=== PATIENT | male | born 1985 | race Hispanic/Latino ===

== ENCOUNTER 2019-01-03 21:11 | Emergency (ER) | payer OTHER ==
--- OUTSIDE RECORDS SUMMARY | 2019-01-03 21:13 | XMS REPORT | Clinical Summary ---
:1985 Author Organization [facility] Address [address] [place] [address] Care Team Providers Name Role Phone Pcp, No Primary Care Provider Unavailable Allergies No Known Allergies Medications No known medications Active Problems Not on file Encounters Date Type Specialty Care Team Description 03/01/2018 Emergency Emergency Medicine Justa Freeman, Chest pain, unspecified type (Primary Dx); Paresthesia; Dizziness 03/01/2018 Orders Only General Internal Medicine after 01/02/2018 Social History Tobacco Use Types Packs/Day Years Used Date Never Assessed Sex Assigned at Date Recorded Not on file Job Start Date Occupation Industry Not on file Not on file Not on file Travel History Travel Start Travel End No recent travel history available. Last Filed Vital Signs Vital Sign Reading Time Taken Blood Pressure 112/52 03/01/2018 7:20 PM CDT Pulse 76 03/01/2018 7:20 PM CDT Temperature 36.5 C (97.7 F) 03/01/2018 5:46 PM CDT Respiratory Rate 29 03/01/2018 7:20 PM CDT Oxygen Saturation 94% 03/01/2018 7:20 PM CDT Inhaled Oxygen Concentration - - Weight 122.9 kg (271 lb) 03/01/2018 5:46 PM CDT Height 185.4 cm (6' 1") 03/01/2018 5:46 PM CDT Body Mass Index 35.75 03/01/2018 5:46 PM CDT Plan of Treatment Not on file Procedures Procedure Name Priority Date/Time Associated Comments Diagnosis CRITICAL CARE Routine 03/10/2018 11:02 Results for this AM CDT procedure are in the results section. XR CHEST 1 VIEW STAT 03/01/2018 6:44 Results for this PORTABLE/BEDSIDE PM CDT procedure are in the results section. CBC W/PLT COUNT & STAT 03/01/2018 6:12 Results for this AUTO DIFFERENTIAL PM CDT procedure are in the results section. CREATINE KINASE (CK), STAT 03/01/2018 6:12 Results for this TOTAL AND MB PM CDT procedure are in the results section. TROPONIN I STAT 03/01/2018 6:12 Results for this PM CDT procedure are in the results section. BASIC METABOLIC PANEL STAT 03/01/2018 6:12 Results for this (7) PM CDT procedure are in the results section. CBC W/PLT COUNT & STAT 03/01/2018 6:12 Results for this AUTO DIFFERENTIAL PM CDT procedure are in the results section. ECG 12-LEAD Routine 03/01/2018 6:10 PM CDT Procedure Note - Interface, External Ris In - 03/01/2018 11:41 PM CDT Ventricular Rate 83 BPM Atrial Rate 83 BPM P-R Interval 134 ms QRS Duration 74 ms Q-T Interval 380 ms QTC Calculation(Bazett) 446 ms P Winthrop 67 degrees R Winthrop 64 degrees T Winthrop 61 degrees Normal sinus rhythm Normal ECG No previous ECGs available ECG 12-LEAD STAT 03/01/2018 6:10 PM CDT POCT-GLUCOSE METER Routine 03/01/2018 6:[address] BRAIN/STROKE TEST STAT 03/01/2018 6:02 PM CDT Results for this procedure DESIGN are in the results section. after 01/02/2018 Results CRITICAL CARE (03/10/2018 11:02 AM CDT) Narrative Performed At Justa Freeman MD 03/10/2018 11:02 AM Critical Care Performed by: JUSTA FREEMAN Authorized by: JUSTA FREEMAN Total critical care time: 40 minutes Critical care time was exclusive of separately billable procedures and treating other patients and teaching time. Critical care was necessary to treat or prevent imminent or life-threatening deterioration of the following conditions: [employer] failure or compromise. Critical care was time spent personally by me on the following activities: development of treatment plan with patient or surrogate, discussions with consultants, discussions with primary provider, interpretation of cardiac output measurements, evaluation of patient's response to treatment, examination of patient, obtaining history from patient or surrogate, ordering and performing treatments and interventions, ordering and review of laboratory studies, ordering and review of radiographic studies, pulse oximetry, re-evaluation of patient's condition and review of old charts. XR chest 1 view portable / bedside (03/01/2018 6:44 PM CDT) Narrative Performed At FINAL REPORT [facility] INDICATION: CHEST PAIN COMPARISON: None TECHNIQUE: Single frontal view of the chest. FINDINGS: Lungs and pleura: Clear lungs. No effusion. Heart and mediastinum: Normal heart size. Unremarkable mediastinal contours. Osseous structures: No acute abnormality. Other: None. IMPRESSION: No acute intrathoracic abnormality. Signed: JR Zamarripa Robert MD Report Verified Date/Time:03/01/2018 19:13:17 Reading Location: [address] Reading Room Procedure Note Interface, External Ris In - 03/01/2018 7:15 PM CDT FINAL REPORT INDICATION: CHEST PAIN COMPARISON: None TECHNIQUE: Single frontal view of the chest. FINDINGS: Lungs and pleura: Clear lungs. No effusion. Heart and mediastinum: Normal heart size. Unremarkable mediastinal contours. Osseous structures: No acute abnormality. Other: None. IMPRESSION: No acute intrathoracic abnormality. Signed: JR Zamarripa Robert MD Report Verified Date/Time: 03/01/2018 19:13:17 Reading Location: [address] Reading Room Performing Organization Address City/State/Zipcode Phone Number [facility] CBC with platelet count + automated diff (03/01/2018 6:12 PM CDT) WBC 7.6 3.5 - 10.5 K/L [facility] RBC 5.00 4.63 - 6.08 M/L [facility] Hemoglobin 14.5 13.7 - 17.5 GM/DL [facility] Hematocrit 44.0 40.1 - 51.0 % [facility] MCV 88.0 79.0 - 92.2 fL [facility] MCH 29.0 25.7 - 32.2 pg [facility] MCHC 33.0 32.3 - 36.5 GM/DL [facility] RDW 11.9 11.6 - 14.4 % [facility] Platelets 218 150 - 450 K/CU MM [facility] MPV 10.9 9.4 - 12.4 fL [facility] nRBC 0 0 - 0 /100 WBC [facility] % Neutros 44 % [facility] % Lymphs 32 % [facility] % Monos 12 % [facility] % Eos 11 % [facility] % Baso 1 % [facility] # Neutros 3.30 1.78 - 5.38 K/L [facility] # Lymphs 2.38 1.32 - 3.57 K/L [facility] # Monos 0.93 (H) 0.30 - 0.82 K/L [facility] # Eos 0.85 (H) 0.04 - 0.54 K/L [facility] # Baso 0.06 0.01 - 0.08 K/L [facility] Immature Granulocytes-Relative 1 0 - 1 % [facility] Specimen Blood - Arm, Left Performing Organization Address City/State/Zipcode Phone Number [facility] [address] [place] [address] CENTER Troponin I (03/01/2018 6:12 PM CDT) Troponin I <0.01 0.00 - 0.03 ng/mL [facility] Specimen Blood - Arm, Left Narrative Performed At [facility] Troponin I (TnI) levels must be interpreted in the context of the presenting symptoms and the clinical findings. Elevated TnI levels indicate myocardial damage, but are not specific for ischemic heart disease. Elevated TnI levels are seen in patients with other cardiac conditions (including myocarditis and congestive heart failure), and slight TnI elevations occur in patients with other conditions, including sepsis, renal failure, acidosis, acute neurological disease, and persistent tachyarrhythmia. Performing Organization Address [facility] Phone Number [address] [address] [phone] [place] Creatine Kinase (CK), Total and MB (03/01/2018 6:12 PM CDT) Total CK 166 29 - 200 U/L [facility] CK-MB 2.3 0.0 - 6.6 ng/mL [facility] MB Relative Index 1.4 % [facility] Specimen Blood - Arm, Left Narrative Performed At CK-MB Reference Range: [facility] <6.7Normal 6.7-10.0Borderline >10.0 Abnormal Performing Organization Address [facility] Phone Number [address] [address] [place] Basic Metabolic Panel (03/01/2018 6:12 PM CDT) Sodium 136 136 - 145 meq/L [facility] Potassium 3.7Comment: Specimen slightly 3.5 - 5.1 meq/L [facility] Chloride 105 98 - 107 meq/L [facility] CO2 23 22 - 29 meq/L [facility] BUN 17 7 - 21 mg/dL [facility] Creatinine 1.15Comment: Specimen slightly 0.57 - 1.25 mg/dL [facility] Glucose 97 70 - 105 mg/dL [facility] Calcium 9.3 8.4 - 10.2 mg/dL [facility] EGFR Comment: INSUFFICIENT CLINICAL mL/min/1.73 sq m [facility] DATA TO CALCULATE ESTIMATED MEDICAL CENTER GFR. Specimen Blood - Arm, Left Performing Organization Address [facility] Phone Number [address] [address] [place] ECG 12 lead (03/01/2018 6:10 PM CDT) Narrative Performed At Ventricular Rate 83 BPM GE MUSE Atrial Rate 83 BPM P-R Interval 134 ms QRS Duration 74 ms Q-T Interval 380 ms QTC Calculation(Bazett) 446 ms P Winthrop 67 degrees R Winthrop 64 degrees T Winthrop 61 degrees Normal sinus rhythm Normal ECG No previous ECGs available Confirmed by Virgilio HUERTA MICHAEL ([id number]) on 03/02/2018 7:51:20 AM Procedure Note Interface, External Ris In - 03/02/2018 7:51 AM CDT Ventricular Rate 83 BPM Atrial Rate 83 BPM P-R Interval 134 ms QRS Duration 74 ms Q-T Interval 380 ms QTC Calculation(Bazett) 446 ms P Winthrop 67 degrees R Winthrop 64 degrees T W[place] 61 degrees Normal sinus rhythm Normal ECG No previous ECGs available Confirmed by Virgilio HUERTA MICHAEL ([id number]) on 03/02/2018 7:51:20 AM Performing Organization Address [facility] Phone Number [facility] POC-Glucose meter (03/01/2018 6:10 PM CDT) POC-Glucose Meter 92Comment: TESTED AT 70 - 110 mg/dL [address] [address] Specimen Blood Performing Organization Address [facility] Phone Number [address] [address] [place] [address] brain/stroke protocol (03/01/2018 6:02 PM CDT) Narrative Performed At FINAL REPORT [facility] head without contrast INDICATION: Left facial numbness and tingling. TECHNIQUE: Axial noncontrast CT images through the head were obtained. Imaging was performed within 24 hours of arrival at the facility. This exam was performed according to our departmental dose optimization program which includes automated exposure control, adjustment of the mA and/or kV according to patient size and/or use of iterative reconstruction technique. COMPARISON: None available FINDINGS: There is no acute intracranial hemorrhage or mass effect. There are no specific CT findings of acute territorial infarct. Please note that CT is insensitive for early or small infarcts. There is no hydrocephalus, midline shift, or cisternal effacement. There is trace chronic ethmoid sinus mucosal thickening and a tiny osteoma. The mastoid air cells and orbits are unremarkable. The calvarium is intact. IMPRESSION: No acute intracranial hemorrhage or mass effect. No specific CT findings of acute territorial infarct. If there is strong suspicion for acute ischemia, MRI is advised. Findings discussed with stroke neurology housestaff at 6:10 PM Signed: Toya Mendiola MD Report Verified Date/Time:03/01/2018 18:11:30 Reading Location: [facility] Reading Room Procedure Note Interface, External Ris In - 03/01/2018 6:13 PM CDT FINAL REPORT CT head without contrast INDICATION: Left facial numbness and tingling. TECHNIQUE: Axial noncontrast CT images through the head were obtained. Imaging was performed within 24 hours of arrival at the facility. This exam was performed according to our departmental dose optimization program which includes automated exposure control, adjustment of the mA and/or kV according to patient size and/or use of iterative reconstruction technique. COMPARISON: None available FINDINGS: There is no acute intracranial hemorrhage or mass effect. There are no specific CT findings of acute territorial infarct. Please note that CT is insensitive for early or small infarcts. There is no hydrocephalus, midline shift, or cisternal effacement. There is trace chronic ethmoid sinus mucosal thickening and a tiny osteoma. The mastoid air cells and orbits are unremarkable. The calvarium is intact. IMPRESSION: No acute intracranial hemorrhage or mass effect. No specific CT findings of acute territorial infarct. If there is strong suspicion for acute ischemia, MRI is advised. Findings discussed with stroke neurology housestaff at 6:10 PM Signed: Toya Mendiola MD Report Verified Date/Time: 03/01/2018 18:11:30 Reading Location: [facility] Reading Room Performing Organization Address City/State/Zipcode Phone Number GE RIS after 01/02/2018 Insurance Payer Benefit Plan / Group Subscriber ID Type Phone Address [employer] - [employer] CARE [employer] HMO/POS/OPEN ACCESS xxxxxxxxxxx HMO/POS
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
--- OUTSIDE RECORDS SUMMARY | 2019-01-03 21:14 | XMS REPORT ---
:1985 Author Organization [employer] Care Team Providers Name Role Phone Guanakito [facility] Provider Role Unavailable Allergies, Adverse Reactions, Alerts Substance Reaction Event Type N.K.D.A. Info Not Available Non Drug Allergy Problems Problem Type Condition Code Onset Dates Condition Status Assessment Elevated blood uric acid level E79.0 Active Assessment Mixed hyperlipidemia E78.2 Active Assessment Allergic rhinitis, unspecified J30.9 Active seasonality, unspecified trigger Problem Mixed hyperlipidemia E78.2 Active Problem Allergic rhinitis, unspecified J30.9 Active seasonality, unspecified trigger Problem MARILYN (obstructive sleep apnea) G47.33 Active Assessment MARILYN (obstructive sleep apnea) G47.33 Active Problem Pharyngitis, unspecified etiology J02.9 Active Problem Seasonal allergies J30.2 Active Medications Medication Code System Code Instructions Start Date End Date Status Dosage ZyrTEC [facility] [id number] Active not defined Results No Known Results Summary Purpose SecureWatersinicalQBuy Submission
--- OUTSIDE RECORDS SUMMARY | 2019-01-03 21:14 | XMS REPORT ---
:1985 Author Organization [employer] Care Team Providers Name Role Phone Loida Calabreseh Provider Role Unavailable Allergies No Known Allergies Problems Problem Type Condition Code Onset Dates Condition Status Problem Mixed hyperlipidemia E78.2 Active Problem Allergic rhinitis, unspecified J30.9 Active seasonality, unspecified trigger Problem MARILYN (obstructive sleep apnea) G47.33 Active Problem Pharyngitis, unspecified etiology J02.9 Active Problem Seasonal allergies J30.2 Active Medications No Known Medications Results No Known Results Summary Purpose eClinicalWorks Submission
--- OUTSIDE RECORDS SUMMARY | 2019-01-03 21:14 | XMS REPORT ---
:1985 Author Organization [employer] Care Team Providers Name Role Phone CalabreseLoidah Provider Role Unavailable Allergies, Adverse Reactions, Alerts Substance Reaction Event Type N.K.D.A. 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
--- OUTSIDE RECORDS SUMMARY | 2019-01-03 21:14 | XMS REPORT ---
:1985 Author Organization eClinicalWorks Care Team Providers Name Role Phone Viral Calabrese Provider Role Unavailable Allergies No Known Allergies [...]
--- OUTSIDE RECORDS SUMMARY | 2019-01-03 21:14 | XMS REPORT ---
:1985 [facility] Address [address] [place] [address] Care Team Providers Name Role Phone JUSTA FREEMAN Unavailable Unavailable Problems This patient has no known problems. Allergies, Adverse Reactions, Alerts This patient has no known allergies or adverse reactions. Medications This patient has no known medications. Results Test Description Test Time Test Comments Text Results Atomic Results Result Comments RAD, CHEST, 1 2018-03-01 19:13:00 Reason for FINAL REPORT PATIENT ID: VIEW, NON DEPT exam:->CHEST [id number] INDICATION: CHEST PAINShould this be PAIN COMPARISON: None performed at the TECHNIQUE: Single frontal bedside?->Yes view of the chest. FINDINGS: Lungs and pleura: Clear lungs. No effusion.Heart and mediastinum: Normal heart size. Unremarkable mediastinal contours.Osseous structures: No acute abnormality.Other: None. IMPRESSION: No acute intrathoracic abnormality. Signed: JR Zamarripa Robert MDReport Verified Date/Time: 03/01/2018 19:13:17 Reading Location: [address] Reading Room TINE KINASE (CK), TOTAL AND MB 2018-03-01 18:46:00 Test Item Value Reference Range Comments CREATINE KINASE TOTAL (BEAKER) (test jgwc=325) 166 U/L 29-200 CREATINE KINASE-MB (BEAKER) (test elro=382) 2.3 ng/mL 0.0-6.6 CREATINE KINASE-MB INDEX (BEAKER) (test jemj=210) 1.4 % CK-MB Reference Range:<6.7 Normal6.7-10.0 Borderline>10.0 AbnormalTROPONIN [id number] 18:46:00 Test Item Value Reference Range Comments TROPONIN I (BEAKER) (test kljk=938) < ng/mL 0.00-0.03 Troponin I (TnI) levels must be interpreted [...] failure, acidosis, acute neurological disease, and persistent tachyarrhythmia.BASIC METABOLIC [id number] 18:44:00 Test Item Value Reference Range Comments SODIUM (BEAKER) (test 136 meq/L 136-145 epjm=623) POTASSIUM (BEAKER) (test 3.7 meq/L 3.5-5.1 Specimen slightly fhof=754) hemolyzed CHLORIDE (BEAKER) (test 105 meq/L 98-107 hyxs=383) CO2 (BEAKER) (test 23 meq/L 22-29 bikh=310) BLOOD UREA NITROGEN 17 mg/dL 7-21 (BEAKER) (test ngfa=883) CREATININE (BEAKER) (test 1.15 mg/dL 0.57-1.25 Specimen slightly ipvv=906) hemolyzed GLUCOSE RANDOM (BEAKER) 97 mg/dL 70-105 (test elgy=027) CALCIUM (BEAKER) (test 9.3 mg/dL 8.4-10.2 ydup=720) EGFR (BEAKER) (test mL/min/1.73 sq m INSUFFICIENT CLINICAL DATA mivd=0635) TO CALCULATE ESTIMATED GFR. CBC W/PLT COUNT & AUTO [id number] 18:23:00 Test Item Value Reference Range Comments WHITE BLOOD CELL COUNT (BEAKER) (test ixlu=226) 7.6 K/ L 3.5-10.5 RED BLOOD CELL COUNT (BEAKER) (test nnts=987) 5.00 M/ L 4.63-6.08 HEMOGLOBIN (BEAKER) (test zgzg=648) 14.5 GM/DL 13.7-17.5 HEMATOCRIT (BEAKER) (test ygge=721) 44.0 % 40.1-51.0 MEAN CORPUSCULAR VOLUME (BEAKER) (test quif=353) 88.0 fL 79.0-92.2 MEAN CORPUSCULAR HEMOGLOBIN (BEAKER) (test 29.0 pg 25.7-32.2 zshf=339) MEAN CORPUSCULAR HEMOGLOBIN CONC (BEAKER) (test 33.0 GM/DL 32.3-36.5 ohap=725) RED CELL DISTRIBUTION WIDTH (BEAKER) (test 11.9 % 11.6-14.4 cojl=743) PLATELET COUNT (BEAKER) (test fsml=817) 218 K/CU MM 150-450 MEAN PLATELET VOLUME (BEAKER) (test wvdg=079) 10.9 fL 9.4-12.4 NUCLEATED RED BLOOD CELLS (BEAKER) (test 0 /100 WBC 0-0 jvqi=085) NEUTROPHILS RELATIVE PERCENT (BEAKER) (test 44 % xzvk=615) LYMPHOCYTES RELATIVE PERCENT (BEAKER) (test 32 % kjjc=887) MONOCYTES RELATIVE PERCENT (BEAKER) (test 12 % xgsp=848) EOSINOPHILS RELATIVE PERCENT (BEAKER) (test 11 % bphx=573) BASOPHILS RELATIVE PERCENT (BEAKER) (test 1 % zncp=482) NEUTROPHILS ABSOLUTE COUNT (BEAKER) (test 3.30 K/ L 1.78-5.38 sula=069) LYMPHOCYTES ABSOLUTE COUNT (BEAKER) (test 2.38 K/ L 1.32-3.57 uzdc=710) MONOCYTES ABSOLUTE COUNT (BEAKER) (test 0.93 K/ L 0.30-0.82 lqjb=131) EOSINOPHILS ABSOLUTE COUNT (BEAKER) (test 0.85 K/ L 0.04-0.54 doxl=232) BASOPHILS ABSOLUTE COUNT (BEAKER) (test 0.06 K/ L 0.01-0.08 oogh=112) IMMATURE GRANULOCYTES-RELATIVE PERCENT (BEAKER) 1 % 0-1 (test ntja=8314) POCT-GLUCOSE [id number] 18:14:00 Test Item Value Reference Range Comments POC-GLUCOSE METER (BEAKER) 92 mg/dL 70-110 TESTED AT [facility] [address] (test dkgf=8916) [facility] [address] CT, BRAIN/STROKE [id number] 18:11:00Reason for exam:-> DIZZINESSReason for exam:->CEREBROVASCULAR ACCIDENTReason for exam:-> CHEST PRESSUREWhat is the patient's sedation requirement?->No SedationFINAL REPORT CT head without contrast INDICATION: Left [...] of iterative reconstruction technique. COMPARISON: None available FINDINGS:There is no acute intracranial hemorrhage or mass effect. There are no specific CT findings ofacute territorial infarct. Please note that CT is insensitive for early or small infarcts. There is no hydrocephalus, midline shift, or cisternal effacement. There is trace chronic ethmoid sinus mucosal thickening and a tiny osteoma. The mastoid air cells and orbits are unremarkable. The calvarium is intact. IMPRESSION: No acute intracranial hemorrhage or mass effect. No specific CT findings of acuteterritorial infarct. If there is strong suspicion for acute ischemia, MRI is advised. Findings discussed with stroke neurology housestaff at 6:10 PM Signed: Toya Mendiola [facility] Verified Date/Time: 03/01/2018 18:11:30 Reading Location: [facility] Radiology Reading Room
--- OUTSIDE RECORDS SUMMARY | 2019-01-03 21:14 | XMS REPORT ---
:1985 Author Organization eClinicalWorks Care Team Providers Name Role Phone Noa Draper Provider Role Unavailable Allergies, Adverse Reactions, Alerts Substance Reaction Event Type N.K.D.A. Info Not Available Non Drug Allergy Problems Problem Type Condition Code Onset Dates Condition Status Problem Pharyngitis, unspecified etiology J02.9 Active Problem Seasonal allergies J30.2 Active Assessment Pharyngitis, unspecified etiology J02.9 Active Assessment Seasonal allergies J30.2 Active Medications Medication Code System Code Instructions Start End Date Status Dosage Date Deconex DMX [facility] [id number] 10-17.5-385 MG March 13March 18, Active one Orally Four 2017 2017 tablet times a day PredniSONE [facility] [id number] 20 mg Orally BID March 13March 18, Active 1 tablet 2017 2018 Results No Known Results Summary Purpose eClinicalWorks Submission
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
[2019-01-04] MEDS ORDERED: IBUPROFEN 400 MG TAB ONE (00:39)
[2019-01-04 01:21] VITALS: BP 122/71; TEMP 97.6; O2SAT 100
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
== END 2019-01-04 00:35 | disposition home or self-care (01) ==
LOC: ER 21:11
DX: S39.012A Strain of muscle, fascia and tendon of lower back, initial encounter (principal); S16.1XXA Strain of muscle, fascia and tendon at neck level, initial encounter; V49.50XA Passenger injured in collision with unspecified motor vehicles in traffic accident, initial encounter
CPT/HCPCS: 72125; 72131; 99284